=== PATIENT | female | born 1950 | race Caucasian/White ===

== ENCOUNTER 2019-04-30 12:18 | Inpatient (IN) | payer OTHER ==
[~2019-04-30] VITALS: Ht 160 cm; Wt 69.8 kg
[~2019-04-30 12:18] MED LIST: AMIT10TA6 PO; ASC500 PO; CALC600T24 PO; DOCU-144 PO; DULO30CA45 PO; FER325 PO; HYDR25SU23 PR; MELO7.5T38 PO; MULTI PO; OMEP40CA6 PO; PSYL3.4P11 PO; [UNRECOGNIZED DRUG - OTHER]
--- NOTE | 2019-04-30 12:23 | ERD ---
ER Documentation Chief Complaint Chief Complaint SI HPI The patient is a 69-year-old female, presenting to the ER because of acute juan cidal ideation. According to DEJAH, she had an argument with her daughter for the last couple days. She is very evasive in history. It is unknown what she took, the EMS told us that she took a few Xanax tablets, however she told us that she took a handful of ibuprofen about 6 AM this morning. Her history is not reliable. She c/o of bloody stool at 5am even before she took the Ibuprofen. She denies headache, neck pain, chest pain, dyspnea, abdominal pain, vomiting, dysuria. She denies smoking or drinking Past medical history: Depression, bipolar, h/o bleeding ulcer Past surgical history/social history/review of system: Unable to obtain due to her condition Medications Home Meds Unable to Obtain Active Prescriptions or Reported Meds Allergies Allergies: Coded Allergies: codeine (Unverified Allergy, Intermediate, 04/30/19) Physical Exam Vitals Vital Signs Date Temp Pulse Resp B/P (MAP) Pulse Ox O2 O2 Flow FiO2 Time Delivery Rate 04/30/19 98.8 108 18 115/74 96 12:26 (88) Physical Exam Const: No acute distress. Head: Atraumatic. Eyes: Normal Conjunctiva. ENT: Normal External Ears, Nose and Mouth. Neck: Full range of motion. No meningismus. Resp: Clear to auscultation bilaterally. Cardio: Regular tachycardic Abd: Soft, non distended, normal bowel sounds, non tender. Skin: No petechiae or rashes. Back: No midline or flank tenderness. Ext: No cyanosis, or edema. Neur: Awake and alert. No focal deficit Psych: Depressed, talkative, suicidal Result Diagram: 04/30/19 1242 04/30/19 1242 Results 24 hrs Laboratory Tests Test 04/30/19 12:33 04/30/19 12:42 Bedside Glucose 97 mg/dL White Blood Count 9.2 10^3/ul Red Blood Count 4.18 10^6/ul Hemoglobin 11.7 g/dl Hematocrit 36.5 % Mean Corpuscular Volume 87.3 fl Mean Corpuscular Hemoglobin 28.0 pg Mean Corpuscular Hemoglobin Concent 32.1 g/dl Red Cell Distribution Width 16.6 % Platelet Count 373 10^3/UL Mean Platelet Volume 9.3 fl Immature Granulocytes % 0.300 % Neutrophils % 61.2 % Lymphocytes % 23.1 % Monocytes % 9.9 % Eosinophils % 4.6 % Basophils % 0.9 % Nucleated Red Blood Cells % 0.0 /100WBC Immature Granulocytes # 0.030 10^3/ul Neutrophils # 5.6 10^3/ul Lymphocytes # 2.1 10^3/ul Monocytes # 0.9 10^3/ul Eosinophils # 0.4 10^3/ul Basophils # 0.1 10^3/ul Nucleated Red Blood Cells # 0.0 10^3/ul Sodium Level 138 mmol/L Potassium Level 4.5 mmol/L Chloride Level 105 mmol/L Carbon Dioxide Level 21 mmol/L Anion Gap 12 Blood Urea Nitrogen 24 mg/dl Creatinine 0.84 mg/dl Est Glomerular Filtrat Rate mL/min > 60 mL/min Glucose Level 100 mg/dl Calcium Level 9.7 mg/dl Total Bilirubin 0.0 mg/dl Direct Bilirubin 0.00 mg/dl Indirect Bilirubin 0.0 mg/dl Aspartate Amino Transf (AST/SGOT) 23 IU/L Alanine Aminotransferase (ALT/SGPT) 19 IU/L Alkaline Phosphatase 95 IU/L Total Protein 8.2 g/dl Albumin 4.0 g/dl Globulin 4.20 g/dl Albumin/Globulin Ratio 0.95 Salicylates Level < 1.0 mg/dl Acetaminophen Level < 10.0 ug/ml Ethyl Alcohol Level < 10.0 mg/dl Procedures/[place] [address] Radiology Main Line: [phone] DIAGNOSTIC IMAGING REPORT Patient: KEVIN SUNG : 1950 Age: 69 Sex: F MR #: [id number] DOS: 04/30/19 1226 Ordering MD: TI DEAL MD Location: E/R Room/Bed: PROCEDURE: X-ray Chest. CLINICAL INDICATION: Cough. TECHNIQUE: Single view chest x-ray. COMPARISON: None available. FINDINGS: There is an eventration of the right hemidiaphragm. The cardiomediastinal silhouette is enlarged. There is mild diffuse interstitial prominence without focal consolidation, effusion, or pneumothorax. There are no acute osseous abnormalities. IMPRESSION: 1. Cardiomegaly with findings suggestive of mild hydrostatic edema. Correlate for underlying heart failure. 2. Eventration of the right hemidiaphragm. RPTAT: RR Physician Randal Date Time Electronically viewed and signed by Physician Randal on 04/30/2019 13:41 LP/ CC: TI DEAL MD [id number] EKG: Read by emergency physician Rate/Rhythm: Normal Sinus Rhythm 93 beats/min QRS, ST, T-waves: No ST elevation, no T inversion Impression: Normal EKG UA/UDS/ Hemoccult: Pending MEDICAL MAKING DECISION: The patient is a 69-year-old female, presenting with acute suicidal ideation, possible acute gastrointestinal bleeding The differential diagnoses considered include but are not limited to decompensated psychiatric illness, gastritis, peptic ulcer disease, esophageal varices, Kate-Oden tear, carcinoma, polyp, hemorrhoid, fissure, diverticulosis, angiodysplasia. Departure Diagnosis: Primary Impression: Suicidal ideations Additional Impressions: Hematochezia Anemia Condition: Stable Comments I discussed the findings with the patient. I notified the patient with Dr. Judd at 1:55p via [email or web address], who was made aware of the lab, the treatment, the patie nt condition. The patient is admitted to [facility] a sitter Disclaimer: Inadvertent spelling and grammatical errors are likely due to EHR/dictation software use and do not reflect on the overall quality of patient care. Also, please note that the electronic time recorded on this note does not necessarily reflect the actual time of the patient encounter. TI DEAL MD Apr 30, 2019 12:23
--- NOTE | 2019-04-30 14:53 | HP ---
Date/Time of Note Date/Time of Note DATE: 04/30/19 TIME: 14:39 Assessment/Plan VTE Prophylaxis SCD applied (from Nsg): Yes Pharmacological prophylaxis: NA/contraindicated Pharm contraindication: low risk/ambulating Assessment/Plan Assessment/Plan 69 yo woman no known PMH presents after apparently overdosing on Xanax in suicide attempt. #Benzodiazepine overdose - Will confirm with urine drug screen. - For now patient lethargic, but awake and protecting airway. - Antidote not needed right now. - Admit, wait for washout #Suicide attempt - Patient dose endorse suicidality to me. - Right now she is too lethargic for detailed conversation. Will wait for benzodiazepine washout, then consult tele-psych in early AM to see if involuntary hold needed. #Rectal bleed - Per history, sounds most consistent with bleeding hemorrhoids. - Will closely monitor overnight, follow Hgb, but for now I do not think colonoscopy or GI consult is needed. DVT: SCDs GI: PPI Result Diagram: 04/30/19 1242 04/30/19 1242 HPI/ROS Admit Date/Time Admit Date/Time 30 April 2019 Hx of Present Illness Ms. Solares is a 69 yo woman who was BIBA called by a friend because apparently she overdosed on Xanax. On my interview the patient is lethargic and unable to give detailed history. She does admit to taking lots of ibuprofen but she does not report xanax, either because she chooses not to or she does not remember. She does say "I didn't want to live anymore". She cannot answer current questions about suicidal ideation. Otherwise the patient does also complain of occasional bright red blood per rectum which she associates with hemorrhoids; last noticed yesterday. And she believes she has blood in her urine also. In the ED she was afebrile, tachy to 108, RR 18, BP 115/74, breathing comfortably on room air. ROS Subjective hx not possible: pt critical status PMH/Family/Social Past Medical History Unknown Medications Current Medications IV Flush (NS 3 ml) 3 ml PER PROTOCOL IV ; Start 04/30/19 at 15:00; Status UNV Ondansetron HCl (Zofran Inj) 4 mg Q6H PRN IV NAUSEA/VOMITING; Start 04/30/19 at 15:00; Status UNV Acetaminophen (Tylenol Tab) 650 mg Q6H PRN PO .PAIN 1-3 OR TEMP; Start 04/30/19 at 15:00; Status UNV Coded Allergies: codeine (Unverified Allergy, Intermediate, 04/30/19) Past Surgical History L total hip replacement R total knee replacement Pelvic surgery (at [facility]) Social History Smoking Status: Never smoker Exam/Review of Systems Vital Signs Vitals Vital Signs Date Temp Pulse Resp B/P (MAP) Pulse Ox O2 O2 Flow FiO2 Time Delivery Rate 04/30/19 98.8 108 18 115/74 96 12:26 (88) Exam Exam Gen: Lethargic woman supine in gurney in no acute distress. HEENT: Moist mucous membranes, clear oropharynx Neck: Supple, no lymphadenopathy, no JVD Card: Regular rate and rhythm, no murmurs Pulm: Clear to auscultation bilaterally. Abd: Soft, nontender, nondistended, not tympanic. No hepatosplenomegaly. Ext: No cyanosis/clubbing/edema. Skin: Warm, dry, well perfused. JAYMIE MILLER MD Apr 30, 2019 14:52
[2019-04-30] MEDS ORDERED: ONDANSETRON 4 MG INJ IV PRN (15:00)
[2019-04-30] MEDS ORDERED: ACETAMINOPHEN 325 MG TAB PO PRN (15:00)
[2019-04-30] MEDS ORDERED: NACL 0.9% 3 ML SYG IV SCH (15:00)
[2019-04-30 23:30] VITALS: BP 102/65; PULSE 85; RESP 20; Ht 160 cm; Wt 69.8 kg
[2019-05-01 04:00] VITALS: BP 98/62; PULSE 94; RESP 18
[2019-05-01] MEDS: PANTOPRAZOLE (EC) 40 MG TAB PO SCH (06:00)
[2019-05-01 08:16] VITALS: BP 103/56; PULSE 99; RESP 19
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
[2019-05-01] MEDS: PSYLLIUM 28% PACKET PO SCH (11:00)
[2019-05-01] MEDS: SOD CHLORIDE 0.9% 1,000 ML IV SCH ×2 (12:15→19:00)
[2019-05-01 12:20] VITALS: BP 113/75; PULSE 95; RESP 18
[2019-05-01 15:20] VITALS: BP 126/85; PULSE 98; RESP 18
[2019-05-01] MEDS: SOD FERRIC GLUC COMPLX 125 MG in SOD CHLORIDE 0.9% 100 ML IVPB SCH (16:09)
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
[2019-05-01] MEDS ORDERED: ZOLPIDEM 5 MG TAB PO PRN (17:30)
[2019-05-01 19:40] VITALS: BP 118/72; PULSE 96; RESP 18
[2019-05-01] MEDS: ZOLPIDEM 5 MG TAB PO PRN (22:10)
[2019-05-01 22:20] VITALS: BP 114/70; PULSE 93; RESP 18
[2019-05-02] MEDS: SOD CHLORIDE 0.9% 1,000 ML IV SCH ×3 (03:00→19:00)
[2019-05-02 04:18] VITALS: BP 110/68; PULSE 90; RESP 18
[2019-05-02] MEDS: PANTOPRAZOLE (EC) 40 MG TAB PO SCH (05:39)
[2019-05-02 08:00] VITALS: BP 100/62; PULSE 86; RESP 18
[2019-05-02] MEDS: PSYLLIUM 28% PACKET PO SCH (09:00)
[2019-05-02] MEDS: DULOXETINE 30 MG CAP DR PO SCH ×2 (10:39→20:03)
[2019-05-02] MEDS ORDERED: HYDROCORTISONE 25 MG SUPP PR PRN (11:30)
[2019-05-02] MEDS ORDERED: BISACODYL (EC) 5 MG TAB PO PRN (11:30)
[2019-05-02] MEDS ORDERED: SOD FERRIC GLUC COMPLX 125 MG in SOD CHLORIDE 0.9% 100 ML IVPB SCH (13:00)
[2019-05-02 14:00] VITALS: BP 143/81; PULSE 88; RESP 20
[2019-05-02] MEDS: SOD FERRIC GLUC COMPLX 125 MG in SOD CHLORIDE 0.9% 100 ML IVPB SCH (14:51)
[2019-05-02 20:00] VITALS: BP 120/72; RESP 19
[2019-05-02] MEDS: ZOLPIDEM 5 MG TAB PO PRN (20:03)
[2019-05-03] MEDS: SOD CHLORIDE 0.9% 1,000 ML IV SCH ×4 (00:45→21:11)
[2019-05-03 02:00] VITALS: BP 146/78; PULSE 76; RESP 20
[2019-05-03] MEDS: PANTOPRAZOLE (EC) 40 MG TAB PO SCH (05:04)
[2019-05-03 07:48] VITALS: BP 146/76; PULSE 68
[2019-05-03] MEDS: DULOXETINE 30 MG CAP DR PO SCH ×2 (08:29→20:04)
[2019-05-03] MEDS: PSYLLIUM 28% PACKET PO SCH (08:30)
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
[2019-05-03] MEDS: SOD FERRIC GLUC COMPLX 125 MG in SOD CHLORIDE 0.9% 100 ML IVPB SCH (14:03)
[2019-05-03 14:07] VITALS: BP 148/75; PULSE 64; RESP 18
[2019-05-03 20:00] VITALS: BP 143/80; PULSE 68; RESP 18
[2019-05-03] MEDS: ZOLPIDEM 5 MG TAB PO PRN (21:11)
[2019-05-04 02:26] VITALS: BP 138/71; RESP 18
[2019-05-04] MEDS: PANTOPRAZOLE (EC) 40 MG TAB PO SCH (05:13)
[2019-05-04] MEDS: SOD CHLORIDE 0.9% 1,000 ML IV SCH (05:13)
[2019-05-04] MEDS: PSYLLIUM 28% PACKET PO SCH (07:55)
[2019-05-04] MEDS: DULOXETINE 30 MG CAP DR PO SCH ×2 (07:55→21:46)
[2019-05-04 08:01] VITALS: BP 168/81; PULSE 68; RESP 18
[2019-05-04] MEDS: LOPERAMIDE 2 MG CAP PO PRN (09:19)
[2019-05-04 13:50] VITALS: BP 140/78; PULSE 72; RESP 18
[2019-05-04] MEDS: ALPRAZOLAM 0.25 MG TAB PO PRN (16:41)
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
[2019-05-04 19:52] VITALS: BP 141/86; PULSE 88; RESP 18
[2019-05-04] MEDS: ZOLPIDEM 5 MG TAB PO PRN (20:05)
[2019-05-05 02:22] VITALS: BP 144/79; PULSE 77; RESP 17
[2019-05-05] MEDS: ALPRAZOLAM 0.25 MG TAB PO PRN (04:11)
[2019-05-05] MEDS: PANTOPRAZOLE (EC) 40 MG TAB PO SCH (06:14)
[2019-05-05 07:39] VITALS: BP 153/75; PULSE 65; RESP 16
[2019-05-05] MEDS: LOPERAMIDE 2 MG CAP PO PRN (08:29)
[2019-05-05] MEDS: DULOXETINE 30 MG CAP DR PO SCH (08:29)
[2019-05-05] MEDS: PSYLLIUM 28% PACKET PO SCH (08:29)
[2019-05-05] MEDS ORDERED: hydrOXYzine PAMOATE 25 MG CAP PO PRN (10:00)
[2019-05-05] MEDS ORDERED: FERROUS FUMARATE (SR) TAB PO SCH (13:30)
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
[2019-05-05] MEDS ORDERED: DULOXETINE 30 MG CAP DR PO SCH (21:00)
== END 2019-05-05 17:05 | DRG 918 ==
LOC: E/R 12:18 → TEL 14:00 → MS3 23:03
PROVIDERS: ADMIT Internal Medicine; ATTEND Family Medicine
DX: T42.4X2A Poisoning by benzodiazepines, intentional self-harm, initial encounter (principal); K62.5 Hemorrhage of anus and rectum; T14.91XA Suicide attempt, initial encounter; F31.9 Bipolar disorder, unspecified; N28.9 Disorder of kidney and ureter, unspecified; F41.9 Anxiety disorder, unspecified; F43.10 Post-traumatic stress disorder, unspecified; K21.9 Gastro-esophageal reflux disease without esophagitis
CPT/HCPCS: 36415; 71045; 76775; 80048; 80053; 80307; 81003; 82728; 82962; 83036; 83540; 83735; 84100; 84443; 85025; 93005; A4310; J2916; J7030